=== PATIENT | male | born 1970 | race Caucasian/White ===

== ENCOUNTER 2016-07-02 03:01 | Observation (INO) | payer BC ==
--- NOTE | ~2016-07-02 | HP ---
History And Physical [place] [id number] [facility] [place] [address] NAME: CANDI SAMANO : 70 STATUS : ADM [facility]per PAT#: [id number] AGE: 45 ADM/REG DATE : 07/02/16 MR#: [id number] REPORT SERV DATE: 07/02/16 DICTATED BY: AIYANA ARNOLD DATE: 07/02/16 REPORT STATUS : Draft TRANSCRIBED BY: MODCon DATE: 07/02/16 DATE OF ADMISSION: 07/02/2016 CHIEF COMPLAINT: Substernal chest pain. HISTORY OF PRESENT ILLNESS: A very pleasant 45-year-old white gentleman with no known history of CAD, presents to our facility after two episodes of chest pain on 07/01/2016 around 2147 hours. He felt left-sided chest pain prior to going to bed. He went to bed and awoke around 2330 hours with stabbing left-sided chest pain that lasted approximately 30 minutes in duration. He did take one full dose aspirin. He describes some radiation to his neck as a pressure, and some left arm tightness. He denies any shortness of breath, nausea, diaphoresis, dizziness, or belching, although he does state that he was "cold and hot." At its most intense, the chest pain was rated as 10/10. At the time of interview in the [facility], he rates it a 1/10. The episode lasted approximately 20 to 30 minutes in duration. He reports for dinner, he had chicken with Marinara Sauce and turkey sausage. The patient denies any change in his activity. No pattern to his chest pain. No exertional component described. The patient actually works in [employer], is out in the field climbing ladders and walking considerably without any issues during work. The patient denies any personal history of myocardial infarction, stroke, DVT, or pulmonary embolus. The patient denies any recent fever or chills, no palpitations, no syncopal episodes. Denies PND or orthopnea. PAST MEDICAL HISTORY: 1. Dyslipidemia. 2. Denies hypertension or diabetes. 3. Former tobacco abuse. PAST SURGICAL HISTORY: Appendectomy. SOCIAL HISTORY: He is with four children. He works in [employer]. Does not have a structured exercise routine, but is active on the job. Quit smoking in 2011. Prior to that was two and a half packs per day for 17 years. Rarely consumes alcohol. Denies illicits. FAMILY HISTORY: No embolic events reported in the first-degree relatives, although maternal uncle with CAD and bypass in his 60s. REVIEW OF SYSTEMS: A 14-point review of systems was performed, significant for HPI including snores per report. Fatigued in the morning with no formal sleep study. Otherwise, complete review of systems was obtained and negative. ALLERGIES: NO KNOWN DRUG ALLERGIES. HOME MEDICATIONS: Vitamin C twice daily; vitamin D3 twice daily; red yeast capsules twice History And Physical [address] [place]. [address] NAME: CANDI SAMANO : 70 STATUS : ADM Piper PAT#: [id number] AGE: 45 ADM/REG DATE : 07/02/16 MR#: [id number] REPORT SERV DATE: 07/02/16 DICTATED BY: AIYANA ARNOLD DATE: 07/02/16 REPORT STATUS : Draft TRANSCRIBED BY: ADOLFO DATE: 07/02/16 daily; turmeric daily; Prostate Essential daily; Stinging Nettle [place] 800 mg twice daily; Astragalus Root 940 mg twice daily; [facility] 950 nightly; triple magnesium 2 mg nightly; Super Stress B-Complex four tablets Tuesday, Tuesday, Tuesday, , and Tuesday; Sleep Essential [id number] three tablets at bedtime; choline and inositol two tablets twice daily; policosanol 40 mg twice daily; Lenard Essential Oil 5 mL daily; Limitless [id number] twice daily; and Immune Health 2 capsules twice daily. PHYSICAL EXAMINATION: BLOOD PRESSURE: Bilateral blood pressures on arrival, right 108/53, left 104/58, this morning 118/63, PULSE: 62, RESPIRATORY RATE: 16, TEMPERATURE: 98.1, O2 saturation 96% on room air. HEIGHT: 5 feet 6 inches. WEIGHT: 180 pounds, BMI of 29. GENERAL: Cooperative, in no apparent distress. HEENT: Pupils 2 mm, sclera nonicteric. Nares patent. Moist mucous membranes. No xanthelasma. NECK: Trachea midline, no thyromegaly. No JVD. No bruits. LYMPH: No cervical lymphadenopathy. No supraclavicular lymphadenopathy. RESPIRATORY: Unlabored respirations. Breath sounds clear bilaterally to posterior auscultation. No wheezes or rhonchi. CARDIOVASCULAR: Regular rate. No murmur, rub or gallop appreciated. EXTREMITIES: Without edema. Pulses 2+ bilaterally. ABDOMEN: Soft, nontender, nondistended, normal bowel sounds auscultated throughout. No organomegaly. SKIN: Warm, dry extremities. No pallor, or cyanosis. PSYCHIATRIC: Appropriate affect. Alert, oriented x3. LABORATORY DATA: Troponin less than 0.02, third pending. Potassium 3.8, BUN 17, creatinine 1.12, glucose 97, and magnesium 2.5. WBC 8.5, hemoglobin 16.7, hematocrit 47.2, and platelet count 307,000. EKG; sinus rhythm, LAD, IRBBB. ASSESSMENT AND PLAN: 1. Substernal chest pain. The patient has been observed in the CPOU overnight to rule out myocardial infarction with two sets of cardiac markers negative, third pending. EKG is stable. The patient has been held n.p.o. We will proceed with MPI today. The patient will be discharged home if low risk, no ischemia. If anything suggestive of ischemia, Cardiology referral will be initiated. Otherwise, the patient will be asked to follow up with the PCP in one to two weeks with all studies being sent to that office. 2. Dyslipidemia. Diet and exercise were discussed. Follow up with the PCP. 3. Snores per report with a.m. fatigue. Recommend outpatient overnight pulse oximetry or sleep study evaluation. 4. Multiple supplements taken. The patient was asked to disclose all of these supplements to his PCP at the next follow up. ISAURO/ADOLFO Aiyana History And Physical [address] [place]. [address] NAME: CANDI SAMANO : 70 STATUS : ADM [place] PAT#: [id number] AGE: 45 ADM/REG DATE : 07/02/16 MR#: [id number] REPORT SERV DATE: 07/02/16 DICTATED BY: AIYANA ARNOLD DATE: 07/02/16 REPORT STATUS : Draft TRANSCRIBED BY: MODL DATE: 07/02/16 JOSEY Arnold, TIP CUTTER-BC / [id number] CC: JOSEY Kang, TIP CUTTER-BC Xavier Lockhart M.D.
[2016-07-02 01:29] LABS: BASOPHILS 0.2 %; BASOPHILS ABSOLUTE 0.02 10/3/uL (0.0-0.16); EOSINOPHILS 2.4 %; HEMATOCRIT 47.2 % (40.0-51.0); HEMOGLOBIN 16.7 g/dL (13.6-17.8); IMMATURE GRANULOCYTES 0.2 %; IMMATURE GRANULOCYTES ABSOLUTE 0.02 10/3/uL (0.0-0.11); LYMPHOCYTES 38.4 %; LYMPHOCYTES ABSOLUTE 3.26 10/3/uL (0.67-4.30); MANUAL DIFF NO %; MEAN CORPUS HGB CONC 35.4 g/dL (32.0-36.0); MEAN CORPUSCULAR HEMOGLOB 31.2 pg (26.0-34.0); MEAN CORPUSCULAR VOLUME 88.1 fL (80-100); MEAN PLATELET VOLUME 9.7 fL (9.2-13.0); MONOCYTES 7.5 %; MONOCYTES ABSOLUTE 0.64 10/3/uL (0.21-1.20); NEUTROPHILS 51.3 %; NEUTROPHILS ABSOLUTE 4.34 10/3/uL (2.02-8.40); PLATELET COUNT 307 10/3/uL (150-400); RBC DISTRIBUTION WIDTH 12.6 % (12.0-16.0); RED CELL COUNT 5.36 10/6/uL (4.7-6.1); WHITE BLOOD CELLS 8.5 10/3/uL (4.5-10.5)
[2016-07-02 01:36] LABS: PARTIAL THROMBO TIME 27.3 SEC (22.5-37.2); PROTIME (NOT ORD) 12.8 SEC (12.0-14.5)
[2016-07-02 01:48] LABS: BUN (BLOOD UREA NITROGEN) 17 MG/DL (6-23); CALCIUM, SERUM 9.6 MG/DL (8.5-10.4); CHEST PAIN PROFILE TAT 0 Hrs 25 Mins; CHLORIDE, SERUM 106 MMOL/L (96-112); CO2 (CARBON DIOXIDE) 30 MMOL/L (24-34); CREATININE 1.12 MG/DL (0.70-1.30); GFR AFRICAN AMERICAN 91 ML/MIN (>=60); GFR NON AFRICAN AMERICAN 79 ML/MIN (>=60); GLUCOSE, SERUM 97 MG/DL (60-99); POTASSIUM, SERUM 3.8 MMOL/L (3.5-5.3); SODIUM, SERUM 141 MMOL/L (135-148); TROPONIN I <0.02 NG/ML (<0.05)
[~2016-07-02 03:01] MED LIST: ASTRAGALUS ROOT PO; CHOLINE PO; CURCUMIN PO; INOSITOL PO; RED YEAS1 PO; TRIPLE MAGNESIUM COM PO; TUMERIC PO; VITAMIN D31000 UNIT PO; VITC500 PO; [UNRECOGNIZED DRUG - OTHER] PO; [UNRECOGNIZED DRUG - OTHER] PO; [UNRECOGNIZED DRUG - OTHER] PO; [UNRECOGNIZED DRUG - OTHER] PO; [UNRECOGNIZED DRUG - OTHER] PO; [UNRECOGNIZED DRUG - OTHER] PO; [UNRECOGNIZED DRUG - OTHER] PO; [UNRECOGNIZED DRUG - OTHER] PO; [UNRECOGNIZED DRUG - OTHER] PO
[2016-07-02 07:16] LABS: TROPONIN I <0.02 NG/ML (<0.05)
[2016-07-02 15:28] LABS: CHOL/HDL RATIO(NOT ORDER) 4.5 (0-5); CHOLESTEROL 159 MG/DL (< 200); HDL CHOLESTEROL 35 MG/DL (> 39); LDL CHOLESTEROL 102 MG/DL (< 130); NON-HDL CHOLESTEROL 124 MG/DL (< 160); TRIGLYCERIDE 111 MG/DL (< 150)
[2016-07-02] MEDS ORDERED: ASAB PO (21:46)
== END 2016-07-02 22:49 | disposition home or self-care (01) ==
LOC: ER 03:01 → CDU1 03:10
PROVIDERS: Clinical Nurse Specialist; Nurse Practitioner
DX: R07.89 Other chest pain (principal); E78.5 Hyperlipidemia, unspecified; Z87.891 Personal history of nicotine dependence; Z90.49 Acquired absence of other specified parts of digestive tract; Z79.899 Other long term (current) drug therapy
CPT/HCPCS: 71010; 78452; 80048; 80061; 83735; 84484; 85025; 85610; 85730; 93005; 93017; 93458; 99152; 99285; A9270-GY; A9502; C1769; C1887; C1894; G0378; J2250; J3010; Q9967